=== PATIENT | female | born 1985 | race Caucasian/White ===

== ENCOUNTER 2017-05-31 17:49 | Emergency (ER) | payer OTHER ==
[~2017-05-31] VITALS: Ht 165.1 cm; Wt 67.3 kg
[~2017-05-31 17:49] MED LIST: ADVI200T PO; AKWA1OIN OP
[2017-05-31] MEDS ORDERED: PREN1CHW4 PO (18:05)
[2017-05-31] MEDS ORDERED: METOCLOPRAMIDE INJ 10MG/2ML VIAL (J2765) IV ONE (18:45)
[2017-05-31] MEDS ORDERED: NS 1,000 ML IV ONE (18:45)
[2017-05-31 19:32] LABS: BASO % 0.2 % (0.0-1.0); EOS # 0.1 K/mm3 (0.0-0.50); EOS % 1.8 % (0.0-3.0); LARGE UNSTAINED CELL # 0.1 K/mm3 (0.0-0.4); LARGE UNSTAINED CELL % 1.3 % (0.0-4.0); LYMPH # 2.1 K/mm3 (1.5-6.5); LYMPH % 29.8 % (24.0-44.0); MEAN CORPUSCULAR HEMOGLOBIN 32.9 pg (27.0-33.0); MEAN CORPUSCULAR HGB CONC 35.6 g/dl (32.0-36.5); MEAN CORPUSCULAR VOLUME 92.6 fl (80.0-96.0); MONO # 0.4 K/mm3 (0.0-0.8); MONO % 5.4 % (0.0-5.0); NEUTROPHILS # 4.2 K/mm3 (1.8-7.7); NEUTROPHILS % 61.4 % (36.0-66.0); PLATELET COUNT, AUTOMATED 168 k/mm3 (150-450); RED CELL DISTRIBUTION WIDTH 12.1 % (11.5-14.5); WHITE BLOOD COUNT 6.8 K/mm3 (4.0-10.0)
[2017-05-31 21:02] LABS: ANION GAP 7 MEQ/L (8-16); BLOOD UREA NITROGEN 8 MG/DL (7-18); CALCIUM LEVEL 8.9 MG/DL (8.5-10.1); CARBON DIOXIDE LEVEL 26 MEQ/L (21-32); CHLORIDE LEVEL 103 MEQ/L (98-107); CREATININE FOR GFR 0.55 MG/DL (0.55-1.02); GLOMERULAR FILTRATION RATE > 60.0 (>60); GLUCOSE, FASTING 75 MG/DL (70-105); HCG, SERUM QUANTITATIVE 82245 MIU/ML; POTASSIUM SERUM 3.5 MEQ/L (3.5-5.1); SODIUM LEVEL 136 MEQ/L (136-145)
--- NOTE | 2017-05-31 21:30 | REPUSA ---
CLINICAL HISTORY: determination. TECHNIQUE: Transabdominal ultrasound of the pelvis was performed. FINDINGS: A pole is identified with crown-rump length of 9 mm, which corresponds to a gestational age of 7 weeks and 0 days. A yolk sac is noted. heart motion is demonstrated, with a rate of 141 beats per minute. HUNTER is estimated at 01/17/18. IMPRESSION: Single live IUP dated 7 w 0 d.
[2017-05-31] MEDS ORDERED: REGL10TA6 PO (21:33)
[2017-05-31 21:42] VITALS: BP 112/69
== END 2017-05-31 21:49 | disposition home or self-care (01) ==
LOC: M ED 17:49
DX: O26.891 Other specified pregnancy related conditions, first trimester (principal); R10.2 Pelvic and perineal pain; O99.331 Smoking (tobacco) complicating pregnancy, first trimester; F17.210 Nicotine dependence, cigarettes, uncomplicated; Z3A.01 Less than 8 weeks gestation of pregnancy
CPT/HCPCS: 76801; 80048; 81001; 84702; 85025; 96361; 96374; 96375; 99283; J2765

== ENCOUNTER → 2017-08-02 | Outpatient (CLI) | payer OTHER ==
[~2017-08-02] MED LIST changes: +PREN1CHW4 PO; +REGL10TA6 PO; +ZOLO25TA PO
[2017-08-02 18:09] LABS: BASO % 0.2 % (0.0-1.0); EOS # 0.1 10^3/uL (0.0-0.50); EOS % 1.1 % (0.0-3.0); IMMATURE GRANULOCYTE % 0.4 % (0-0); LYMPH # 1.7 10^3/uL (1.5-4.5); LYMPH % 20.2 % (24.0-44.0); MEAN CORPUSCULAR HEMOGLOBIN 33.6 pg (27.0-33.0); MONO # 0.6 10^3/uL (0.0-0.8); MONO % 6.6 % (0.0-5.0); NEUTROPHILS # 5.9 10^3/uL (1.8-7.7); NEUTROPHILS % 71.5 % (36.0-66.0); PLATELET COUNT, AUTOMATED 189 10^3/uL (150-450); RED CELL DISTRIBUTION WIDTH 12.9 % (11.5-14.5); WHITE BLOOD COUNT 8.3 10^3/uL (4.0-10.0)
[2017-08-02 18:18] LABS: ADD MORPHOLOGY? NO
[2017-08-04 09:49] LABS: HBsAg Prenatal NEGATIVE (NEGATIVE)
== END ==
LOC: M SMT 14:11
PROVIDERS: ATTEND Specialist
DX: Z34.81 Encounter for supervision of other normal pregnancy, first trimester (principal)

== ENCOUNTER 2017-08-20 21:53 | Emergency (ER) | payer OTHER ==
[~2017-08-20] VITALS: Ht 165.1 cm; Wt 67.2 kg
[~2017-08-20 21:53] MED LIST changes: -ZOLO25TA PO
[2017-08-20] MEDS ORDERED: ZOLO25TA PO (22:04)
[2017-08-20] MEDS ORDERED: NS 1,000 ML IV ONE (22:45)
[2017-08-20] MEDS ORDERED: ACETAMINOPHEN 325 MG TAB PO ONE (22:45)
[2017-08-20] MEDS ORDERED: diphenhydrAMINE INJ 50MG/ML VIAL (J1200) IV ONE (22:45)
[2017-08-20] MEDS ORDERED: METOCLOPRAMIDE INJ 10MG/2ML VIAL (J2765) IV ONE (22:45)
[2017-08-20 23:53] LABS: BASO % 0.2 % (0.0-1.0); EOS # 0.1 10^3/uL (0.0-0.50); EOS % 0.7 % (0.0-3.0); IMMATURE GRANULOCYTE % 0.4 % (0-0); LYMPH # 2.2 10^3/uL (1.5-4.5); LYMPH % 20.6 % (24.0-44.0); MEAN CORPUSCULAR HEMOGLOBIN 34.1 pg (27.0-33.0); MEAN CORPUSCULAR HGB CONC 35.5 g/dl (32.0-36.5); MONO # 0.6 10^3/uL (0.0-0.8); MONO % 5.9 % (0.0-5.0); NEUTROPHILS # 7.9 10^3/uL (1.8-7.7); NEUTROPHILS % 72.2 % (36.0-66.0); PLATELET COUNT, AUTOMATED 182 10^3/uL (150-450); RED CELL DISTRIBUTION WIDTH 12.4 % (11.5-14.5); WHITE BLOOD COUNT 10.9 10^3/uL (4.0-10.0)
[2017-08-21 00:20] LABS: ALBUMIN 3.3 GM/DL (3.2-5.2); ALBUMIN/GLOBULIN RATIO 0.92 (1.00-1.93); ALKALINE PHOSPHATASE 67 U/L (45-117); ALT/SGPT 14 U/L (12-78); ANION GAP 6 MEQ/L (8-16); AST/SGOT 10 U/L (15-37); BILIRUBIN,DIRECT < 0.1 MG/DL (0.0-0.2); BILIRUBIN,TOTAL 0.2 MG/DL (0.2-1.0); BLOOD UREA NITROGEN 5 MG/DL (7-18); CALCIUM LEVEL 8.7 MG/DL (8.5-10.1); CARBON DIOXIDE LEVEL 26 MEQ/L (21-32); CHLORIDE LEVEL 107 MEQ/L (98-107); CREATININE FOR GFR 0.37 MG/DL (0.55-1.02); GLOMERULAR FILTRATION RATE > 60.0 (>60); GLUCOSE, FASTING 84 MG/DL (70-105); POTASSIUM SERUM 3.5 MEQ/L (3.5-5.1); SODIUM LEVEL 139 MEQ/L (136-145); TOTAL PROTEIN 6.9 GM/DL (6.4-8.2)
--- NOTE | 2017-08-21 00:30 | REPUSA ---
CLINICAL HISTORY: Pelvic pain. TECHNIQUE: Realtime sonographic images were obtained in multiple projections via TA approach. The exa mination was performed by the photovoltaic fabrication technician and still images were submitted for interpretation. COMMENTS: Single, live intrauterine gestation in transverse presentation with the head to the maternal right po sition. motion was identified. heart rate 162 beats per minute. Anterior placenta without evidence of placenta previa or abruption. Placenta grade 0. Unremarkable amniotic fluid. The cervix imaged transabdominally measures up to 3.4 cm. Lateral ventricle measures 7.2 mm. Evaluation of the maternal adnexal and cul-de-sac regions revealed no abnormalities. The estimated gestation age is 19 weeks and one day. There has been appropriate interval growth since the prior exam. gender was documented as indeterminate at this time. Nuchal cord was not seen. The exam quality was good. There is an anterior contraction at the beginning of the exam that has resolved by the end of the exa m. There is also a synechia noted inferior left.. IMPRESSION: Single, live intrauterine gestation. Thank you for your kind referral of this patient.
[2017-08-21 00:41] VITALS: BP 111/65
== END 2017-08-21 01:32 | disposition home or self-care (01) ==
LOC: M ED 21:53
DX: O26.892 Other specified pregnancy related conditions, second trimester (principal); O99.512 Diseases of the respiratory system complicating pregnancy, second trimester; J45.909 Unspecified asthma, uncomplicated; O99.352 Diseases of the nervous system complicating pregnancy, second trimester; G51.0 Bell's palsy; Z79.899 Other long term (current) drug therapy; Z88.0 Allergy status to penicillin; Z88.1 Allergy status to other antibiotic agents; Z3A.18 18 weeks gestation of pregnancy
CPT/HCPCS: 76811; 80048; 80076; 81001; 83690; 85025; 87086; 96374; 96375; 99283; J1200; J2765

== ENCOUNTER → 2017-08-23 | Outpatient (CLI) | payer OTHER ==
[~2017-08-23] MED LIST changes: +ZOLO25TA PO
== END ==
LOC: M RAD 10:43
PROVIDERS: ATTEND Advanced Practice Midwife
DX: Z34.80 Encounter for supervision of other normal pregnancy, unspecified trimester (principal)

== ENCOUNTER → 2017-10-25 | Outpatient (CLI) | payer OTHER ==
[2017-10-25 17:20] LABS: BASO % 0.2 % (0.0-1.0); EOS # 0.1 10^3/uL (0.0-0.50); LYMPH # 1.7 10^3/uL (1.5-4.5); LYMPH % 15.1 % (24.0-44.0); MEAN CORPUSCULAR HEMOGLOBIN 33.9 pg (27.0-33.0); MEAN CORPUSCULAR HGB CONC 34.2 g/dl (32.0-36.5); MEAN CORPUSCULAR VOLUME 99.1 fl (80.0-96.0); MONO # 0.8 10^3/uL (0.0-0.8); MONO % 7.2 % (0.0-5.0); NEUTROPHILS # 8.6 10^3/uL (1.8-7.7); NEUTROPHILS % 75.5 % (36.0-66.0); PLATELET COUNT, AUTOMATED 221 10^3/uL (150-450); RED CELL DISTRIBUTION WIDTH 12.4 % (11.5-14.5); WHITE BLOOD COUNT 11.5 10^3/uL (4.0-10.0)
== END ==
LOC: M SMT 13:43
PROVIDERS: ATTEND Advanced Practice Midwife
DX: Z34.83 Encounter for supervision of other normal pregnancy, third trimester (principal); Z3A.00 Weeks of gestation of pregnancy not specified

== ENCOUNTER → 2017-11-09 | Outpatient (CLI) | payer OTHER | LOC: M SMT 09:45 | DX: Z34.82 Encounter for supervision of other normal pregnancy, second trimester (principal) | CPT/HCPCS: 76816 ==

== ENCOUNTER → 2017-12-20 | Outpatient (REF) | payer OTHER | LOC: M LAB REF 13:25 | DX: Z34.83 Encounter for supervision of other normal pregnancy, third trimester (principal) ==

== ENCOUNTER 2018-01-22 08:27 | Inpatient (IN) | payer OTHER ==
[2018-01-22] MEDS: LACTATED RINGER'S 1000 ML IV (11:32)
[2018-01-22] MEDS: LR 1,000 ML IV ×2 (11:32→22:06)
[2018-01-22] MEDS ORDERED: OXYTOCIN DRIP 30 UNITS in APPROPRIATE DILUENT 1 EA IV (12:30)
[2018-01-22 13:44] LABS: HEMATOCRIT 35.7 % (36.0-47.0); HEMOGLOBIN 12.2 g/dl (12.0-16.0); MEAN CORPUSCULAR HGB CONC 34.2 g/dl (32.0-36.5); MEAN CORPUSCULAR VOLUME 90.8 fl (80.0-96.0); PLATELET COUNT, AUTOMATED 242 10^3/uL (150-450); RED BLOOD COUNT 3.93 10^6/uL (4.00-5.40); RED CELL DISTRIBUTION WIDTH 12.4 % (11.5-14.5); WHITE BLOOD COUNT 11.8 10^3/uL (4.0-10.0)
[2018-01-22 14:13] LABS: AMPHETAMINES URINE REFLEX NEGATIVE (NEGATIVE); BARBITURATES URINE REFLEX NEGATIVE (NEGATIVE); BENZODIAZEPINES URINE REFLEX NEGATIVE (NEGATIVE); CANNABINOIDS URINE REFLEX NEGATIVE (NEGATIVE); COCAINE METABOLITE URINE REFLE NEGATIVE (NEGATIVE); METHADONE URINE REFLEX NEGATIVE (NEGATIVE); OPIATES URINE REFLEX NEGATIVE (NEGATIVE); PHENCYCLIDINE URINE REFLEX NEGATIVE (NEGATIVE)
[2018-01-22] MEDS ORDERED: BUTORPHANOL 2 MG/ML INJ (J0595) As Ordered (20:33)
[2018-01-22] MEDS ORDERED: PROMETHAZINE INJ 25 MG/ML VIAL (J2550) As Ordered (20:34)
[2018-01-22] MEDS: BUTORPHANOL 2 MG/ML INJ (J0595) IV (20:45)
[2018-01-22] MEDS: PROMETHAZINE INJ 25 MG/ML VIAL (J2550) IV (20:45)
[2018-01-22 22:07] LABS: CORD GAS ABE A -5.3; CORD GAS ABE V -3.2; CORD GAS HCO3 A 20.9 MEQ/L; CORD GAS HCO3 V 21.2 MEQ/L; CORD GAS O2 SAT A 65.7 %; CORD GAS PCO2 A 42.8 mmHg; CORD GAS PCO2 V 36.4 mmHg; CORD GAS PH A 7.306 UNITS; CORD GAS PH V 7.383 UNITS; CORD GAS PO2 A 29.5 mmHg; CORD GAS SBC A 19.4 MEQ/L; CORD GAS SBC V 21.5 MEQ/L; CORD GAS TCO2 A 22.2 MEQ/L; CORD GAS TCO2 V 22.3 MEQ/L
[2018-01-22] MEDS ORDERED: PROMETHAZINE 25 MG TAB PO (22:15)
[2018-01-22] MEDS ORDERED: ONDANSETRON 4MG/2ML VIAL (J2405) IV (22:15)
[2018-01-22] MEDS ORDERED: MEASLES,MUMPS,RUBELLA VACCINE INJ (MMR-II) (90707) SC (22:15)
[2018-01-22] MEDS ORDERED: RHOGAM 300 MCG (1500 IU) INJ (J2790) IM (22:15)
[2018-01-22] MEDS ORDERED: DOCUSATE SODIUM 100 MG CAP PO (22:15)
[2018-01-22] MEDS ORDERED: DIBUCAINE 1% OINTMENT 30GM TOP (22:15)
[2018-01-23] MEDS: OXYTOCIN DRIP 30 UNITS in APPROPRIATE DILUENT 1 EA IV (00:51)
[2018-01-23] MEDS: LIDOCAINE 1% MDV 20ML VIAL INFIL (00:51)
[2018-01-23] MEDS: IBUPROFEN 800 MG TAB PO (03:31)
[2018-01-23] MEDS: ACETAMINOPHEN 500 MG TAB PO (05:30)
[2018-01-23] MEDS: PRENATAL VITAMINS CHEWABLE TABLET PO (07:44)
[2018-01-24] MEDS: medroxyPROGESTERone ACET IM SUSP 150 MG/ML VIAL (J1050) IM (06:44)
[2018-01-24] MEDS: PRENATAL VITAMINS CHEWABLE TABLET PO (09:32)
[2018-01-24] MEDS: IBUPROFEN 800 MG TAB PO (10:48)
== END 2018-01-24 11:00 | disposition home or self-care (01) | DRG 560 ==
LOC: M LDI 08:27 → M OBS 23:59
PROVIDERS: Obstetrics & Gynecology
PROC: 3E033VJ Introduction of Other Hormone into Peripheral Vein, Percutaneous Approach (ICD-10-PCS; principal; 2018-01-22)
PROC: 0HQ9XZZ Repair Perineum Skin, External Approach (ICD-10-PCS; 2018-01-22)
DX: O48.0 Post-term pregnancy (principal); F17.200 Nicotine dependence, unspecified, uncomplicated; Z37.0 Single live birth; Z3A.40 40 weeks gestation of pregnancy; Z88.2 Allergy status to sulfonamides; Z88.0 Allergy status to penicillin; O70.0 First degree perineal laceration during delivery; O99.334 Smoking (tobacco) complicating childbirth

== ENCOUNTER 2018-07-06 11:43 | Emergency (ER) | payer OTHER ==
[2018-07-06] MEDS: NS 1,000 ML IV (13:27)
[2018-07-06] MEDS: ONDANSETRON 4MG/2ML VIAL (J2405) IV (13:27)
[2018-07-06] MEDS: MORPHINE 2 MG/ML 1ML SYRINGE (J2270) IV (13:28)
[2018-07-06 13:42] LABS: BASO % 0.3 % (0.0-1.0); EOS % 0.6 % (0.0-3.0); HEMATOCRIT 38.2 % (36.0-47.0); HEMOGLOBIN 13.2 g/dl (12.0-15.5); IMMATURE GRANULOCYTE % 0.3 % (0-3.0); LYMPH # 2.1 10^3/uL (1.5-4.5); LYMPH % 33.3 % (24.0-44.0); MEAN CORPUSCULAR HEMOGLOBIN 32.4 pg (27.0-33.0); MEAN CORPUSCULAR HGB CONC 34.6 g/dl (32.0-36.5); MEAN CORPUSCULAR VOLUME 93.9 fl (80.0-96.0); MONO # 0.4 10^3/uL (0.0-0.8); MONO % 6.5 % (0.0-5.0); NEUTROPHILS # 3.8 10^3/uL (1.8-7.7); PLATELET COUNT, AUTOMATED 182 10^3/uL (150-450); RED BLOOD COUNT 4.07 10^6/uL (4.00-5.40); RED CELL DISTRIBUTION WIDTH 11.9 % (11.5-14.5); WHITE BLOOD COUNT 6.4 10^3/uL (4.0-10.0)
[2018-07-06 13:56] LABS: CONTROL LINE HCG INT CTR LINE PRESENT; HCG, SERUM QUALITATIVE NEGATIVE (NEGATIVE)
== END 2018-07-06 14:43 | disposition home or self-care (01) ==
LOC: M ED 11:43
DX: N93.8 Other specified abnormal uterine and vaginal bleeding (principal); F33.9 Major depressive disorder, recurrent, unspecified; F17.200 Nicotine dependence, unspecified, uncomplicated; Z88.0 Allergy status to penicillin; Z88.2 Allergy status to sulfonamides
CPT/HCPCS: J2405

== ENCOUNTER → 2019-10-25 | Outpatient (CLI) | payer OTHER ==
[~2019-10-25] MED LIST changes: +BUSP5TA PO; +MAPA500T2 PO; +MOTR200T44 PO; +PRENTAB9 PO
--- NOTE | 2019-10-25 12:20 | REP ---
OBSTETRIC SONOGRAPHY: HISTORY: Supervision of for anatomy. FINDINGS: Scanning through the gravid uterus demonstrates a viable single intrauterine gestation in a breech lie. motion is observed and heart rate is recorded at 169 beats per minute. A posterior fundal grade 1 placenta is seen without evidence of previa or abruption. Amniotic fluid is subjectively normal. Closed cervical length is 4.1 cm. No extrauterine abnormalities observed. No anomaly is seen. Choroid plexus and the cerebellum posterior fossa are less than optimally seen due to advanced gestational age. The following anatomic structures are identified and felt to be unremarkable: cranium, cavum, face and profile, lungs, four-chamber heart with left and right ventricular outflow tract views, diaphragm, left-sided stomach, abdominal wall cord insertion, three-vessel umbilical cord, kidneys and bladder, spine, upper and lower extremities. Biometry Chart: BPD 8.5 cm = 34 weeks 0 days HC 31.3 cm = 35 weeks 1 day AC 29.6 cm = 33 weeks 4 days FL 6.0 cm = 31 weeks 1 day HL 5.7 cm = 33 weeks 0 days HC/AC ratio normal 1.06. Cephalic index normal 0.75. Estimated weight 2108 grams/4 pounds 10 ounces/39th percentile for 33 weeks 2 days. IMPRESSION: Viable single intrauterine gestation at 33 weeks 2 days by today's composite sonographic criteria. HUNTER by today's sonography December 11, 2019. Electronically Signed by Pablo Perdomo MD 10/25/2019 01:55 P
== END ==
LOC: M RAD 10:14
PROVIDERS: ATTEND Advanced Practice Midwife
DX: Z34.90 Encounter for supervision of normal pregnancy, unspecified, unspecified trimester (principal); Z3A.33 33 weeks gestation of pregnancy

== ENCOUNTER → 2019-11-22 | Outpatient (REF) | payer OTHER | LOC: M SFHCWAGY 17:11 | PROVIDERS: ATTEND Advanced Practice Midwife | DX: Z36.85 Encounter for antenatal screening for Streptococcus B (principal) ==

== ENCOUNTER 2019-12-16 11:32 | Inpatient (IN) | payer OTHER ==
[~2019-12-16] VITALS: Ht 165.1 cm; Wt 85.8 kg
[2019-12-16] VITALS (18 sets, daily range): BP systolic 103–136; BP diastolic 56–80
[2019-12-16] MEDS ORDERED: LR 1,000 ML IV SCH (12:20)
[2019-12-16] MEDS ORDERED: OXYTOCIN DRIP 30 UNITS in IV 1 EA IV SCH ×2 (12:30→23:33)
[2019-12-16 12:56] LABS: MEAN CORPUSCULAR HEMOGLOBIN 30.3 pg (27.0-33.0); MEAN CORPUSCULAR HGB CONC 32.4 g/dl (32.0-36.5); MEAN CORPUSCULAR VOLUME 93.4 fl (80.0-96.0); PLATELET COUNT, AUTOMATED 173 10^3/uL (150-450); RED BLOOD COUNT 3.96 10^6/uL (4.00-5.40)
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
[2019-12-16 13:53] LABS: HEMOGLOBIN A1c 4.9 %
[2019-12-16] MEDS ORDERED: BUTORPHANOL 2 MG/ML INJ (J0595) IV ONE (17:00)
[2019-12-16] MEDS ORDERED: PROMETHAZINE INJ 25 MG/ML VIAL (J2550) IV ONE ×2 (17:00→22:00)
[2019-12-16] MEDS ORDERED: BUTORPHANOL 2 MG/ML INJ (J0595) IV PRN (19:30)
--- NOTE | 2019-12-16 23:31 | DNPDOC ---
[facility] Delivery Note Delivery Note DATE OF DELIVERY: 12/16/2019 AT 2254 PREDELIVERY DIAGNOSIS: 40-5/7 weeks' gestation and labor. POST DELIVERY DIAGNOSIS: Delivered. PROCEDURE: Spontaneous vaginal delivery. PROVIDER: RADHA Velasquez assisted by Shay De La Torre CNM, AGUS ANESTHESIA: None. ESTIMATED BLOOD LOSS: 100 mL. FINDINGS: 8 pound 0 ounce (3620g) male , Score 9/9. DELIVERY SUMMARY: Patient is a 34-year-old 3 now para 3-0-0-3 who was admitted to labor and delivery for induction of labor. The patient was induced using IV Pitocin. She received Stadol last at 1999 and Phenergan last at 2200 for pain management. AROM of moderate amount of clear fluid was performed at 2216. The patient progressed to fully dilated at 2251 and pushed to a living male in the ROT position without restitution at 2254. The anterior shoulder delivered with ease and the corpus immediately followed. The baby was placed on the maternal abdomen, [id number], active and crying. The cord was clamped times 2 after pulsation ceased and cut by the grandmother. A 3-vessel cord was noted. The placenta delivered spontaneously and intact at 2300. The placenta was noted to be circumvallate. Uterine hemostasis was achieved via rapid infusion of IV Pitocin at 999 ml/hr for 30 units in 500 ml NS and fundal massage. The vagina, cervix and perineum were inspected and found to have a small, left periurethral abrasion that was not repaired due to good hemostasis. Both mom and baby are in stable condition. All counts of instruments and sponges are correct. She is naming her baby "Vlad Merrill." SHAY DE LA TORRE CNM Dec 16, 2019 23:31
[2019-12-16] MEDS ORDERED: ANUSOL HC CREAM 30GM TOP PRN (23:45)
[2019-12-16] MEDS ORDERED: DIBUCAINE 1% OINTMENT 30GM TOP PRN (23:45)
[2019-12-16] MEDS ORDERED: ACETAMINOPHEN TAB 650MG DOSE (2X325MG) PO PRN (23:45)
[2019-12-16] MEDS ORDERED: DOCUSATE SODIUM 100 MG CAP PO PRN (23:45)
[2019-12-16] MEDS ORDERED: IBUPROFEN 600 MG TAB PO PRN (23:45)
[2019-12-16] MEDS ORDERED: METHYLERGONOVINE MALEATE 0.2 MG TAB PO PRN (23:45)
[2019-12-16] MEDS ORDERED: MEASLES,MUMPS,RUBELLA VACCINE INJ (MMR-II) (90707) SC SCH (23:45)
[2019-12-16] MEDS ORDERED: RHOGAM 300 MCG (1500 IU) INJ (J2790) IM SCH (23:45)
[2019-12-17 00:20] VITALS: BP 99/58
[2019-12-17] MEDS: ACETAMINOPHEN 500 MG TAB PO PRN ×2 (03:27→20:18)
[2019-12-17 03:37] LABS: CHLAMYDIA DNA AMPLIFICATION NEGATIVE (NEGATIVE); GC DNA AMPLIFICATION NEGATIVE (NEGATIVE)
[2019-12-17 05:46] VITALS: BP 111/55
--- NOTE | 2019-12-17 07:18 | IPNPDOC ---
Progress Note Date of Service: Dec 17, 2019 Day#: 1 Progress Note SUBJECT: Rosendo Dangelo is a 34-year-old 3 now Para 3-0-0-3 status post uncomplicated spontaneous vaginal delivery at 40-5/7 and doing well day # 1. She has been ambulating, voiding spontaneously without issue and tolerating regular diet. She is formula feeding her baby. Reports lochia is like a normal period. Reports soreness and stiffness in low back and hips. OBJECTIVE: VITAL SIGNS: Within normal limits, afebrile. Alert and oriented times three. Breath sounds clear to auscultation. Heart rate: Regular rate and rhythm, no murmurs, rubs or gallops. Abdomen: Fundus firm at U-1. Soft, NTTP. Minimal lochia. ASSESSMENT: day #1. PLAN: 1. Discharge to home tomorrow. 2. Tylenol and Motrin for pain. 3. Encourage ambulation. 4. Ice pack as needed for pain. VS, I&O, 24H, Fishbone Vital Signs/I&O Vital Signs Date Time Temp Pulse Resp B/P (MAP) Pulse Ox O2 Delivery O2 Flow Rate FiO2 12/17/19 05:46 98.3 87 16 111/55 (73) 96 Room Air I&O- Last 24 Hours up to 6 AM 12/17/19 05:59 Intake Total 1736 ml Output Total 400 ml Balance 1336 ml Laboratory Data 24H LABS Laboratory Tests 2 12/16/19 12:08: Serology Scanned Report Hepatitis B Testing 12/16/19 12:41: Nucleated Red Blood Cells % (auto) 0.0, Estimated Mean Plasma Glucose 94, Hemoglobin A1c 4.9, Syphilis Serology NONREACTIVE 12/17/19 01:45: Chlamydia trachomatis DNA ([facility]) NEGATIVE, Neisseria gonorrhoeae DNA ([facility]) NEGATIVE CBC/BMP Laboratory Tests 12/16/19 12:41 SHAY PERALTA CNM Dec 17, 2019 07:18
[2019-12-17] MEDS: IBUPROFEN 800 MG TAB PO PRN ×2 (07:55→15:37)
[2019-12-17] MEDS ORDERED: ADACEL/BOOSTRIX VACCINE (DIPHTH/PERTUSS/ACELL/TETANUS)0.5ML SYR (90715) IM ONE (09:00)
[2019-12-17] MEDS ORDERED: INFLUENZA QUADRIVALENT PF VACCINE 0.5ML SYRINGE (90686) IM ONE (09:00)
[2019-12-17] MEDS: PRENATAL VITAMINS CHEWABLE TABLET PO SCH (09:12)
[2019-12-17] MEDS ORDERED: PERCOCET 5MG/325MG TAB PO PRN (09:45)
[2019-12-17 17:53] VITALS: BP 122/72
[2019-12-18 06:00] VITALS: BP 103/79
[2019-12-18] MEDS: PRENATAL VITAMINS CHEWABLE TABLET PO SCH (09:00)
== END 2019-12-18 11:25 | disposition home or self-care (01) | DRG 560 ==
LOC: M LDI 11:32 → M OBS 12-17 00:43
PROVIDERS: ADMIT Advanced Practice Midwife; ATTEND Advanced Practice Midwife
PROC: 10E0XZZ Delivery of Products of Conception, External Approach (ICD-10-PCS; principal; 2019-12-16)
PROC: 3E033VJ Introduction of Other Hormone into Peripheral Vein, Percutaneous Approach (ICD-10-PCS; 2019-12-16)
PROC: 10907ZC Drainage of Amniotic Fluid, Therapeutic from Products of Conception, Via Natural or Artificial Opening (ICD-10-PCS; 2019-12-16)
DX: O48.0 Post-term pregnancy (principal); Z3A.40 40 weeks gestation of pregnancy; Z37.0 Single live birth; O99.334 Smoking (tobacco) complicating childbirth; F17.200 Nicotine dependence, unspecified, uncomplicated; O43.113 Circumvallate placenta, third trimester

== ENCOUNTER → 2024-03-13 | Outpatient (CLI) | payer OTHER ==
[2024-03-13 16:53] LABS: URIC ACID 2.5 MG/DL (3.1-7.8)
[2024-03-13 16:55] LABS: LDH LACTATE DEHYDROGENASE 143 U/L (120-246)
[2024-03-13 16:56] LABS: ALT/SGPT 17 U/L (7.0-40); AST/SGOT 12 U/L (<34); BILIRUBIN,TOTAL 0.3 MG/DL (0.3-1.2); CREATININE FOR GFR 0.47 MG/DL (0.55-1.30); GLOMERULAR FILTRATION RATE > 60.0 (>60)
[2024-03-13 17:08] LABS: HEMATOCRIT 33.4 % (36.0-47.0); HEMOGLOBIN 11.7 g/dl (12.0-15.5); MEAN CORPUSCULAR HEMOGLOBIN 33.4 pg (27.0-33.0); MEAN CORPUSCULAR VOLUME 95.4 fl (80.0-96.0); PLATELET COUNT, AUTOMATED 172 10^3/uL (150-450)
[2024-03-13 17:12] LABS: TOTAL PROTEIN,RANDOM URINE 9.5 MG/DL (0.0-14.0)
[2024-03-13 17:17] LABS: CREATININE,RANDOM URINE 105.5 MG/DL
[2024-03-13 17:29] LABS: HIV 1&2 SCREEN NEGATIVE (NEGATIVE)
[2024-03-13 17:36] LABS: HEPATITIS C VIRUS ABY INDEX < 0.02 INDEX (<0.8)
[2024-03-13 18:21] LABS: GC DNA AMPLIFICATION NEGATIVE (NEGATIVE)
== END ==
LOC: M PLALAB 12:29
PROVIDERS: ATTEND Advanced Practice Midwife
DX: Z34.81 Encounter for supervision of other normal pregnancy, first trimester (principal)

== ENCOUNTER → 2024-04-08 | Outpatient (CLI) | payer OTHER | LOC: M WHC 07:33 | PROVIDERS: ATTEND Obstetrics & Gynecology | DX: Z34.92 Encounter for supervision of normal pregnancy, unspecified, second trimester (principal) ==

== ENCOUNTER → 2024-06-04 | Outpatient (CLI) | payer OTHER | LOC: M WHC 14:22 | PROVIDERS: ATTEND Advanced Practice Midwife | DX: Z34.92 Encounter for supervision of normal pregnancy, unspecified, second trimester (principal) ==

== ENCOUNTER → 2024-06-12 | Outpatient (CLI) | payer OTHER ==
[2024-06-12 18:37] LABS: HEMATOCRIT 31.4 % (36.0-47.0); HEMOGLOBIN 10.6 g/dl (12.0-15.5); MEAN CORPUSCULAR HGB CONC 33.8 g/dl (32.0-36.5); MEAN CORPUSCULAR VOLUME 100.6 fl (80.0-96.0); PLATELET COUNT, AUTOMATED 162 10^3/uL (150-450); RED BLOOD COUNT 3.12 10^6/uL (4.00-5.40); WHITE BLOOD COUNT 9.8 10^3/uL (4.0-10.0)
[2024-06-12 19:53] LABS: GC DNA AMPLIFICATION NEGATIVE (NEGATIVE)
== END ==
LOC: M PLALAB 14:45
PROVIDERS: ATTEND Obstetrics & Gynecology
DX: O99.332 Smoking (tobacco) complicating pregnancy, second trimester (principal); Z3A.00 Weeks of gestation of pregnancy not specified

== ENCOUNTER → 2024-06-24 | Outpatient (CLI) | payer OTHER | LOC: M LAB 07:36 | PROVIDERS: ATTEND Obstetrics & Gynecology | DX: R73.09 Other abnormal glucose (principal) ==

== ENCOUNTER 2024-07-10 11:31 | Emergency (ER) | payer OTHER ==
[~2024-07-10] VITALS: Ht 165.1 cm; Wt 77.3 kg
[2024-07-10] MEDS ORDERED: PNV1TABL16 PO (11:47)
[2024-07-10] MEDS ORDERED: ACET325C5 PO (11:47)
[2024-07-10] MEDS ORDERED: METO10TA3 (11:47)
[2024-07-10] MEDS ORDERED: FAMO1TAB11 (11:47)
[2024-07-10] MEDS: IPRATROPIUM 0.5MG/ALBUTEROL 2.5MG INH SOL UD 3ML (DUONEB) NEB ONE (12:28)
[2024-07-10] MEDS: LEVALBUTEROL 1.25MG 0.5ML CONCENTRATE NEB INH ONE (14:16)
[2024-07-10 14:31] LABS: BASO % 0.2 % (0.0-1.0); EOS # 0.2 10^3/uL (0.0-0.5); EOS % 1.6 % (0.0-3.0); HEMATOCRIT 34.5 % (36.0-47.0); HEMOGLOBIN 11.8 g/dl (12.0-15.5); LYMPH # 1.6 10^3/uL (1.5-5.0); LYMPH % 17.3 % (24.0-44.0); MEAN CORPUSCULAR HEMOGLOBIN 32.9 pg (27.0-33.0); MEAN CORPUSCULAR HGB CONC 34.2 g/dl (32.0-36.5); MEAN CORPUSCULAR VOLUME 96.1 fl (80.0-96.0); MONO # 0.6 10^3/uL (0.0-0.8); MONO % 6.6 % (2.0-8.0); NEUTROPHILS # 6.9 10^3/uL (1.5-8.5); NEUTROPHILS % 73.5 % (36.0-66.0); PLATELET COUNT, AUTOMATED 136 10^3/uL (150-450); RED BLOOD COUNT 3.59 10^6/uL (4.00-5.40); WHITE BLOOD COUNT 9.4 10^3/uL (4.0-10.0)
[2024-07-10] MEDS: AZITHROMYCIN 250MG TABLET PO ONE (14:38)
[2024-07-10] MEDS: methylPREDNISolone 125MG 2ML VIAL IV ONE (14:38)
[2024-07-10] MEDS: cefTRIAXone SOD 1 GM in D5W MINI-BAG PLUS 50 ML IV ONE (14:38)
[2024-07-10 14:53] LABS: ALBUMIN 2.5 G/DL (3.2-5.2); ALKALINE PHOSPHATASE 127 U/L (46-116); ALT/SGPT 14 U/L (7.0-40); AST/SGOT 13 U/L (<34); BILIRUBIN,TOTAL 0.3 MG/DL (0.3-1.2); BLOOD UREA NITROGEN 7 MG/DL (9-23); CALCIUM LEVEL 8.7 MG/DL (8.5-10.1); CARBON DIOXIDE LEVEL 24 MMOL/L (20-31); CHLORIDE LEVEL 108 MMOL/L (98-107); CREATININE FOR GFR 0.49 MG/DL (0.55-1.30); GLOMERULAR FILTRATION RATE > 60.0 (>60); GLUCOSE, FASTING 71 MG/DL (60-100); MAGNESIUM LEVEL 1.9 MG/DL (1.8-2.4); POTASSIUM SERUM 3.5 MMOL/L (3.5-5.1); SODIUM LEVEL 137 MMOL/L (136-145); TOTAL PROTEIN 6.2 G/DL (5.7-8.2)
[2024-07-10] MEDS ORDERED: ROBILIQ13 PO (15:52)
[2024-07-10] MEDS ORDERED: CEFD1CAP9 PO (15:52)
[2024-07-10] MEDS ORDERED: ZITHTAB PO (15:52)
[2024-07-10] MEDS ORDERED: PROA1AER2 INH (15:52)
[2024-07-10] MEDS ORDERED: PRED20TA PO (15:52)
[2024-07-10 16:09] VITALS: BP 123/93; TEMP 98; O2SAT 98
== END 2024-07-10 16:25 | disposition home or self-care (01) ==
LOC: M ED 11:31
DX: O99.513 Diseases of the respiratory system complicating pregnancy, third trimester (principal); J44.1 Chronic obstructive pulmonary disease with (acute) exacerbation; J18.9 Pneumonia, unspecified organism; Z3A.32 32 weeks gestation of pregnancy; O99.343 Other mental disorders complicating pregnancy, third trimester; O99.333 Smoking (tobacco) complicating pregnancy, third trimester; Z79.899 Other long term (current) drug therapy; Z88.0 Allergy status to penicillin; Z88.2 Allergy status to sulfonamides
CPT/HCPCS: 71045; 80053; 83735; 83880; 85025; 87486; 87581; 87633; 87798; 93005; 94640; 96365; 96366; 96375; 99284; G0463; J0696; J2919

== ENCOUNTER → 2024-08-07 | Outpatient (CLI) | payer OTHER ==
[~2024-08-07] MED LIST changes: +ACET325C5 PO; +CEFD1CAP9 PO; +FAMO1TAB11; +METO10TA3; +PNV1TABL16 PO; +PRED20TA PO; +PROA1AER2 INH; +ROBILIQ13 PO; +ZITHTAB PO
== END ==
LOC: M WHC 11:55
PROVIDERS: ATTEND Obstetrics & Gynecology
DX: O40.3XX0 Polyhydramnios, third trimester, not applicable or unspecified (principal)

== ENCOUNTER → 2024-08-07 | Outpatient (REF) | payer OTHER | LOC: M SFHCWAGY 12:48 | PROVIDERS: ATTEND Obstetrics & Gynecology | DX: Z36.85 Encounter for antenatal screening for Streptococcus B (principal); Z3A.36 36 weeks gestation of pregnancy ==

== ENCOUNTER 2024-08-28 10:45 | Emergency (ER) | payer OTHER ==
[~2024-08-28] VITALS: Ht 170.2 cm; Wt 77.9 kg
[2024-08-28 13:20] VITALS: BP 148/77; TEMP 97.5; O2SAT 100
== END 2024-08-28 13:00 | disposition left against medical advice (07) ==
LOC: M ED 10:45
DX: Z53.21 Procedure and treatment not carried out due to patient leaving prior to being seen by health care provider (principal)

== ENCOUNTER 2024-10-27 10:39 | Emergency (ER) | payer OTHER ==
[~2024-10-27] VITALS: Ht 165.1 cm; Wt 76.5 kg
[2024-10-27] MEDS: NS (Normal Saline) 0.9% 1,000 ML IV ONE (10:50)
[2024-10-27 11:40] LABS: BASO % 0.2 % (0.0-1.0); EOS % 0.7 % (0.0-3.0); HEMOGLOBIN 13.8 g/dl (12.0-15.5); LYMPH # 1.6 10^3/uL (1.5-5.0); LYMPH % 26.5 % (24.0-44.0); MEAN CORPUSCULAR HEMOGLOBIN 29.9 pg (27.0-33.0); MEAN CORPUSCULAR HGB CONC 33.7 g/dl (32.0-36.5); MEAN CORPUSCULAR VOLUME 88.7 fl (80.0-96.0); MONO # 0.4 10^3/uL (0.0-0.8); MONO % 7.5 % (2.0-8.0); NEUTROPHILS # 3.8 10^3/uL (1.5-8.5); NEUTROPHILS % 64.9 % (36.0-66.0); PLATELET COUNT, AUTOMATED 155 10^3/uL (150-450); RED BLOOD COUNT 4.62 10^6/uL (4.00-5.40); WHITE BLOOD COUNT 5.9 10^3/uL (4.0-10.0)
[2024-10-27 11:57] LABS: CK-MB VALUE MASS < 1.0 NG/ML (<3.6); LIPASE 32 U/L (12-53)
[2024-10-27 11:58] LABS: ETHYL ALCOHOL (ETHANOL) < 0.003 % (0.000-0.010)
[2024-10-27 11:59] LABS: SALICYLATE LEVEL < 3.0 MG/DL (<30)
[2024-10-27 12:00] LABS: CPK CREATINE PHOSPHOKINASE 64 U/L (34-145); MB/CK RELATIVE INDEX 1.56 (< OR =4)
[2024-10-27 12:01] LABS: FREE T4 1.09 NG/DL (0.89-1.76); THYROID STIMULATING HORMONE 2.146 uIU/ML (0.55-4.78)
[2024-10-27 12:02] LABS: ALKALINE PHOSPHATASE 94 U/L (35-104); ALT/SGPT 27 U/L (7.0-40); AST/SGOT 15 U/L (<34); BILIRUBIN,DIRECT < 0.1 MG/DL (<0.4); BILIRUBIN,TOTAL 0.3 MG/DL (0.3-1.2); BLOOD UREA NITROGEN 11 MG/DL (9-23); CALCIUM LEVEL 9.8 MG/DL (8.5-10.1); CARBON DIOXIDE LEVEL 23 MMOL/L (20-31); CHLORIDE LEVEL 111 MMOL/L (98-107); CREATININE FOR GFR 0.69 MG/DL (0.55-1.30); GLOMERULAR FILTRATION RATE > 60.0 (>60); GLUCOSE, FASTING 120 MG/DL (60-100); HCG, SERUM QUALITATIVE NEGATIVE (NEGATIVE); MAGNESIUM LEVEL 2.1 MG/DL (1.8-2.4); POTASSIUM SERUM 4.1 MMOL/L (3.5-5.1); SODIUM LEVEL 144 MMOL/L (136-145); TOTAL PROTEIN 7.1 G/DL (5.7-8.2)
[2024-10-27] MEDS: ACETAMINOPHEN 325 MG TAB PO ONE (12:03)
[2024-10-27 12:19] LABS: AMPHETAMINES LEVEL URINE NEGATIVE (NEGATIVE); BARBITURATES URINE NEGATIVE (NEGATIVE); BENZODIAZEPINES URINE NEGATIVE (NEGATIVE); CANNABINOIDS URINE NEGATIVE (NEGATIVE); COCAINE METABOLITE URINE NEGATIVE (NEGATIVE); METHADONE URINE NEGATIVE (NEGATIVE); OPIATES URINE NEGATIVE (NEGATIVE); PHENCYCLIDINE URINE NEGATIVE (NEGATIVE)
[2024-10-27 13:12] LABS: CK-MB VALUE MASS < 1.0 NG/ML (<3.6)
[2024-10-27 13:15] LABS: CPK CREATINE PHOSPHOKINASE 62 U/L (34-145); MB/CK RELATIVE INDEX 1.61 (< OR =4)
[2024-10-27] MEDS ORDERED: CLIN150C17 PO (14:10)
[2024-10-27] MEDS ORDERED: ONDA-282 PO (14:11)
[2024-10-27 14:31] VITALS: BP 93/53; TEMP 98.4; O2SAT 98
== END 2024-10-27 14:58 | disposition home or self-care (01) ==
LOC: EDBD 10:39 → M ED 10:39
DX: R11.10 Vomiting, unspecified (principal); K08.9 Disorder of teeth and supporting structures, unspecified; F32.A Depression, unspecified; Z88.0 Allergy status to penicillin; Z88.2 Allergy status to sulfonamides

== ENCOUNTER → 2025-02-13 | Outpatient (REF) | payer OTHER ==
[~2025-02-13] MED LIST changes: +CLIN150C17 PO; +ONDA-282 PO
[2025-02-15 16:03] LABS: HPV APTIMA Not Detected (Not Detected)
== END ==
LOC: M PLALAB 10:09
PROVIDERS: ATTEND Advanced Practice Midwife
DX: Z01.419 Encounter for gynecological examination (general) (routine) without abnormal findings (principal); R87.612 Low grade squamous intraepithelial lesion on cytologic smear of cervix (LGSIL)

== ENCOUNTER → 2025-03-20 | Outpatient (REF) | payer OTHER | LOC: M PLALAB 13:56 | PROVIDERS: ATTEND Advanced Practice Midwife | DX: R87.612 Low grade squamous intraepithelial lesion on cytologic smear of cervix (LGSIL) (principal) ==

== ENCOUNTER 2025-07-13 16:45 | Emergency (ER) | payer OTHER ==
[~2025-07-13] VITALS: Ht 165.1 cm; Wt 73.6 kg
[2025-07-13] MEDS ORDERED: ISOVUE-370 76% 100 ML VIAL As Ordered ONE (18:36)
[2025-07-13 18:41] LABS: BASO # 0.0 10^3/uL (0.0-0.2); BASO % 0.5 % (0.0-1.0); EOS # 0.1 10^3/uL (0.0-0.5); EOS % 1.4 % (0.0-3.0); LYMPH # 2.7 10^3/uL (1.5-5.0); LYMPH % 31.9 % (24.0-44.0); MONO # 0.5 10^3/uL (0.0-0.8); MONO % 5.7 % (2.0-8.0); NEUTROPHILS # 5.1 10^3/uL (1.5-8.5); NEUTROPHILS % 60.3 % (36.0-66.0); PLATELET COUNT, AUTOMATED 188 10^3/uL (150-450)
[2025-07-13 18:42] VITALS: BP 123/74; TEMP 98.6; O2SAT 99
[2025-07-13 19:10] LABS: AMPHETAMINES LEVEL URINE NEGATIVE (NEGATIVE); BARBITURATES URINE NEGATIVE (NEGATIVE); BENZODIAZEPINES URINE NEGATIVE (NEGATIVE); CANNABINOIDS URINE NEGATIVE (NEGATIVE); COCAINE METABOLITE URINE NEGATIVE (NEGATIVE); METHADONE URINE NEGATIVE (NEGATIVE); OPIATES URINE NEGATIVE (NEGATIVE); PHENCYCLIDINE URINE NEGATIVE (NEGATIVE)
[2025-07-13 19:11] LABS: ALT/SGPT 24 U/L (7.0-40); AST/SGOT 18 U/L (<34); CALCIUM LEVEL 9.8 MG/DL (8.5-10.1); CARBON DIOXIDE LEVEL 27 MMOL/L (20-31); CHLORIDE LEVEL 109 MMOL/L (98-107); CREATININE FOR GFR 0.80 MG/DL (0.55-1.30); GLOMERULAR FILTRATION RATE > 90.0 (>60); MAGNESIUM LEVEL 2.4 MG/DL (1.8-2.4); POTASSIUM SERUM 4.0 MMOL/L (3.5-5.1); SODIUM LEVEL 145 MMOL/L (136-145)
[2025-07-13 19:14] LABS: FREE T4 1.12 NG/DL (0.89-1.76)
[2025-07-13] MEDS: ACETAMINOPHEN *IV* 1,000 MG in IV 1 EA IV ONE (19:58)
[2025-07-13] MEDS: KETOROLAC 30 MG/ML 1 ML VIAL IV ONE (19:58)
[2025-07-13] MEDS: dexAMETHasone 4 MG/ML 1 ML VIAL IV ONE (19:58)
[2025-07-13] MEDS: MAG SULF 1GM/100ML (MAG RUN) 1 GM in IV 1 EA IV ONE (20:06)
[2025-07-13 23:00] VITALS: BP 102/62; TEMP 98.5; O2SAT 98
== END 2025-07-13 23:05 | disposition left against medical advice (07) ==
LOC: M ED 16:45
DX: G43.801 Other migraine, not intractable, with status migrainosus (principal); Z53.9 Procedure and treatment not carried out, unspecified reason; F41.9 Anxiety disorder, unspecified; F32.A Depression, unspecified; Z86.69 Personal history of other diseases of the nervous system and sense organs; F17.200 Nicotine dependence, unspecified, uncomplicated; Z79.899 Other long term (current) drug therapy; Z88.0 Allergy status to penicillin; Z88.2 Allergy status to sulfonamides
CPT/HCPCS: 70450; 70496; 70498; 70551; 71045; 80047; 80048; 80076; 80307; 83735; 84439; 84443; 85025; 93005; 93041; 94760; 96365; 96366; 96368; 96375; 99285; J0131; J1100; J1885; J2765; J3475; Q9967